=== PATIENT | female | born 1945 | race African-American/Black ===

== ENCOUNTER 2018-07-19 21:03 | Emergency (ER) | payer MEDICARE, MEDICAID ==
[~2018-07-19] VITALS: Ht 162.6 cm; Wt 77.0 kg
[2018-07-19 23:17] LABS: BASOPHILS % 1.1 % (0.0-2.0); EOSINOPHILS % 6.3 % (0.0-5.0); HEMATOCRIT. 38.9 % (36.0-48.0); HEMOGLOBIN. 12.9 g/dL (12.0-16.0); LYMPHOCYTES % 41.6 % (20.0-50.0); MEAN CORPUSCULAR HEMOGLOBIN 33.2 pg (28.0-32.0); MEAN CORPUSCULAR VOLUME 100.3 fL (81.0-99.0); MEAN PLATELET VOLUME 7.7 fl (7.4-10.4); MONOCYTES % 14.3 % (2.0-8.0); NEUTROPHILS % 36.7 % (40.0-76.0); PLATELET 161 x1000/uL (130-400); RED BLOOD CELL COUNT 3.87 mill/uL (4.2-5.4); RED CELL DISTRIBUTION WIDTH 15.8 % (11.6-14.6)
[2018-07-19 23:23] LABS: CHLORIDE 96 mEq/L (98-107)
[2018-07-19 23:24] LABS: INR 1.1; PROTHROMBIN TIME 10.7 sec (9.1-11.1)
[2018-07-19] MEDS ORDERED: ONDANSETRON HCL 4MG/2ML INJ IV STA (23:37)
[2018-07-19] MEDS ORDERED: MORPHINE SULFATE 4 MG/ML CPJ (NOT FOR IM USE) IV STA (23:37)
[2018-07-20] MEDS ORDERED: HYDROCODONE/ACETAMINOPHEN 10/325MG TABLET PO SCH (02:45)
[2018-07-20] MEDS ORDERED: ACETAMINOPHEN 500MG TABLET PO ONE (02:45)
[2018-07-20 04:30] VITALS: BP 110/78
== END 2018-07-20 04:30 | disposition home or self-care (01) ==
LOC: ER 21:03
DX: S39.91XA Unspecified injury of abdomen, initial encounter (principal); M79.671 Pain in right foot; I12.0 Hypertensive chronic kidney disease with stage 5 chronic kidney disease or end stage renal disease; N18.6 End stage renal disease; E78.5 Hyperlipidemia, unspecified; Z99.2 Dependence on renal dialysis; F17.200 Nicotine dependence, unspecified, uncomplicated; W06.XXXA Fall from bed, initial encounter; Y93.9 Activity, unspecified; Y92.9 Unspecified place or not applicable; Z90.49 Acquired absence of other specified parts of digestive tract
CPT/HCPCS: 36415; 71045; 73630; 74176; 80053; 83690; 84484; 85025; 85610; 93005; 96374; 96375; 99284; J2270; J2405

== ENCOUNTER 2021-06-15 06:45 | Inpatient (IN) | payer MEDICARE, MEDICAID ==
[~2021-06-15] VITALS: Ht 172.7 cm; Wt 75.3 kg
[2021-06-15] MEDS ORDERED: MORPHINE SULFATE 4 MG/ML CPJ (NOT FOR IM USE) IV ONE (12:15)
[2021-06-15] MEDS ORDERED: ONDANSETRON HCL 4MG/2ML INJ IV ONE (12:15)
[2021-06-15] MEDS ORDERED: PANTOPRAZOLE SODIUM 40 MG/VIAL IV ONE (12:15)
[2021-06-15 13:06] LABS: BASOPHILS % 0.5 % (0.0-2.0); EOSINOPHILS % 0.6 % (0.0-5.0); HEMATOCRIT. 46.1 % (36.0-48.0); HEMOGLOBIN. 15.6 g/dL (12.0-16.0); LYMPHOCYTES % 15.3 % (20.0-50.0); MEAN CORPUSCULAR HEMOGLOBIN 33.5 pg (28.0-32.0); MEAN CORPUSCULAR VOLUME 99.1 fL (81.0-99.0); MEAN PLATELET VOLUME 8.4 fl (7.4-10.4); MONOCYTES % 11.2 % (2.0-8.0); NEUTROPHILS % 72.4 % (40.0-76.0); PLATELET 144 x1000/uL (130-400); RED BLOOD CELL COUNT 4.65 mill/uL (4.2-5.4); RED CELL DISTRIBUTION WIDTH 14.4 % (11.6-14.6)
[2021-06-15 13:12] LABS: CHLORIDE 94 mEq/L (98-107)
[2021-06-15] MEDS ORDERED: IOHEXOL-350 100 ML BOTTLE ONE (14:35)
[2021-06-15] MEDS ORDERED: HYDROCODONE/ACETAMINOPHEN 10/325MG TABLET PO ONE (17:15)
[2021-06-15] MEDS ORDERED: ACETAMINOPHEN 325MG TABLET PO PRN ×2 (18:15)
[2021-06-15] MEDS ORDERED: DOCUSATE SODIUM 100MG CAPSULE PO PRN (18:15)
[2021-06-15] MEDS ORDERED: SODIUM POLYSTYRENE SULFONATE 15 G/60 ML BOT PO NR (18:15)
[2021-06-15] MEDS ORDERED: ALBUTEROL 6.7GM HFA INHALER ORI PRN (18:15)
[2021-06-15] MEDS ORDERED: CLONIDINE 0.1MG TABLET PO PRN (18:15)
[2021-06-15] MEDS ORDERED: NITROGLYCERIN 0.4MG TABLET SL SL PRN (18:15)
[2021-06-15] MEDS ORDERED: GUAIFENESIN 200MG/10ML SUGAR FREE UDC PO PRN (18:15)
[2021-06-15] MEDS ORDERED: MAGNESIUM/ALUMINUM HYDROXIDE/SIMETHICONE 30ML UDC PO PRN (18:15)
[2021-06-15] MEDS ORDERED: IPRATROPIUM/ALBUTEROL 0.5-3(2.5)MG/3ML NEB NEB PRN (18:15)
[2021-06-15] MEDS ORDERED: ZOLPIDEM TARTRATE 5MG TABLET PO PRN (18:15)
[2021-06-15 19:47] LABS: ETHANOL BLOOD < 10 mg/dL
[2021-06-15 20:26] LABS: VITAMIN B12 SERUM 1244 pg/mL (211-911)
[2021-06-15] MEDS: METOPROLOL TARTRATE 25MG TABLET PO SCH (20:58)
[2021-06-15] MEDS: FAMOTIDINE 20MG TABLET PO SCH (21:05)
[2021-06-15] MEDS: ASCORBIC ACID 500 MG TABLET PO SCH (21:06)
[2021-06-15] MEDS: ENOXAPARIN 30MG/0.3ML SYR SUBCUT SCH (21:06)
[2021-06-15] MEDS ORDERED: MIDODRINE HCL 2.5MG TABLET PO SCH (22:00)
[2021-06-15] MEDS ORDERED: PIPERACILLIN/TAZ 3.375G PREMIX 50 ML IV SCH (22:15)
[2021-06-15] MEDS ORDERED: SODIUM CHLORIDE 0.9% 250 ML IV SCH (22:30)
[2021-06-15] MEDS: PIPERACILLIN/TAZOBACTAM 3.375 G in DEXTROSE 5% WATER 50 ML IV SCH (23:58)
[2021-06-16 00:40] LABS: CREATINE KINASE 48 IU/L (26-192)
[2021-06-16 00:41] LABS: CREATINE KINASE MB FRACTION < 1.0 ng/mL (0.5-3.6)
[2021-06-16] MEDS: TRAMADOL 50MG TABLET PO PRN (07:09)
[2021-06-16] MEDS ORDERED: NALOXONE HCL 0.4MG/ML VIAL IV PRN (07:30)
[2021-06-16 07:59] LABS: BASOPHILS % 0.9 % (0.0-2.0); EOSINOPHILS % 7.4 % (0.0-5.0); HEMATOCRIT. 40.4 % (36.0-48.0); HEMOGLOBIN. 13.6 g/dL (12.0-16.0); LYMPHOCYTES % 21.3 % (20.0-50.0); MEAN CORPUSCULAR HEMOGLOBIN 33.3 pg (28.0-32.0); MEAN CORPUSCULAR VOLUME 99.3 fL (81.0-99.0); NEUTROPHILS % 56.4 % (40.0-76.0); PLATELET 140 x1000/uL (130-400); RED BLOOD CELL COUNT 4.07 mill/uL (4.2-5.4); RED CELL DISTRIBUTION WIDTH 14.8 % (11.6-14.6)
[2021-06-16] MEDS: PIPERACILLIN/TAZOBACTAM 3.375 G in DEXTROSE 5% WATER 50 ML IV SCH ×2 (09:02→21:38)
[2021-06-16] MEDS: ZINC SULFATE 220 MG ( 50 ) CAPSULE PO SCH (09:02)
[2021-06-16] MEDS: MIDODRINE HCL 5MG TABLET PO SCH ×3 (09:02→17:18)
[2021-06-16] MEDS: ASCORBIC ACID 500 MG TABLET PO SCH ×2 (09:03→21:38)
[2021-06-16] MEDS: SEVELAMER CARBONATE 800 MG TABLET PO SCH ×3 (09:03→17:17)
[2021-06-16] MEDS: CHOLECALCIFEROL (D3) 1000 UNIT TABLET PO SCH (09:03)
[2021-06-16] MEDS: METOPROLOL TARTRATE 25MG TABLET PO SCH ×2 (09:04→21:00)
[2021-06-16 10:47] VITALS: BP 86/42
[2021-06-16] MEDS ORDERED: LIDO35.44 TP (11:22)
[2021-06-16] MEDS ORDERED: MV-M1TAB19 PO (11:23)
[2021-06-16] MEDS ORDERED: ASPI-1497 PO (11:24)
[2021-06-16] MEDS ORDERED: CHOL500010 (11:24)
[2021-06-16] MEDS ORDERED: DILT120C11 MT (11:25)
[2021-06-16] MEDS ORDERED: ATOR20TA65 MT (11:25)
[2021-06-16] MEDS ORDERED: HYDR-4009 PO (11:26)
[2021-06-16 12:00] VITALS: BP 86/42
[2021-06-16 13:01] LABS: HEPATITIS B SURFACE ANTIGEN NEGATIVE
[2021-06-16] MEDS: SODIUM CHLORIDE 0.9% 1,000 ML IV SCH (13:31)
[2021-06-16 16:00] VITALS: BP 112/66
[2021-06-16] MEDS ORDERED: DIPHENHYDRAMINE 50MG CAPSULE PO NR (16:00)
[2021-06-16 20:00] VITALS: BP 96/48
[2021-06-16] MEDS ORDERED: PNEUMOCOCCAL 23-VAL P-SAC VAC 0.5 ML IM ONE (20:00)
[2021-06-16 21:37] LABS: BASOPHILS % 1.1 % (0.0-2.0); EOSINOPHILS % 9.6 % (0.0-5.0); HEMATOCRIT. 34.3 % (36.0-48.0); HEMOGLOBIN. 11.7 g/dL (12.0-16.0); LYMPHOCYTES % 21.1 % (20.0-50.0); MEAN CORPUSCULAR HEMOGLOBIN 33.9 pg (28.0-32.0); MEAN CORPUSCULAR VOLUME 99.7 fL (81.0-99.0); MEAN PLATELET VOLUME 8.3 fl (7.4-10.4); NEUTROPHILS % 55.2 % (40.0-76.0); PLATELET 130 x1000/uL (130-400); RED BLOOD CELL COUNT 3.44 mill/uL (4.2-5.4); RED CELL DISTRIBUTION WIDTH 14.9 % (11.6-14.6)
[2021-06-16] MEDS: FAMOTIDINE 20MG TABLET PO SCH (21:38)
[2021-06-16] MEDS: ENOXAPARIN 30MG/0.3ML SYR SUBCUT SCH (21:39)
[2021-06-16 21:47] LABS: CHLORIDE 99 mEq/L (98-107)
[2021-06-16 21:57] LABS: CREATINE KINASE 47 IU/L (26-192)
[2021-06-16 22:00] LABS: CREATINE KINASE MB FRACTION < 1.0 ng/mL (0.5-3.6)
[2021-06-17] MEDS: SODIUM CHLORIDE 0.9% 1,000 ML IV SCH ×2 (00:53→10:40)
[2021-06-17 04:00] VITALS: BP 119/43
[2021-06-17] MEDS: SEVELAMER CARBONATE 800 MG TABLET PO SCH ×3 (06:10→18:54)
[2021-06-17 08:00] VITALS: BP 102/55
[2021-06-17 08:02] LABS: HEMATOCRIT. 35.4 % (36.0-48.0); HEMOGLOBIN. 11.7 g/dL (12.0-16.0); MEAN CORPUSCULAR HEMOGLOBIN 33.1 pg (28.0-32.0); MEAN CORPUSCULAR VOLUME 99.8 fL (81.0-99.0); MEAN PLATELET VOLUME 8.5 fl (7.4-10.4); PLATELET 120 x1000/uL (130-400); RED BLOOD CELL COUNT 3.55 mill/uL (4.2-5.4); RED CELL DISTRIBUTION WIDTH 14.9 % (11.6-14.6)
[2021-06-17 08:45] LABS: CHLORIDE 100 mEq/L (98-107)
[2021-06-17 08:55] LABS: PHOSPHORUS 4.5 mg/dL (2.5-4.9)
[2021-06-17] MEDS: METOPROLOL TARTRATE 25MG TABLET PO SCH ×2 (09:00→21:00)
[2021-06-17] MEDS: ZINC SULFATE 220 MG ( 50 ) CAPSULE PO SCH (10:38)
[2021-06-17] MEDS: CHOLECALCIFEROL (D3) 1000 UNIT TABLET PO SCH (10:38)
[2021-06-17] MEDS: MIDODRINE HCL 5MG TABLET PO SCH ×3 (10:38→18:54)
[2021-06-17] MEDS: PIPERACILLIN/TAZOBACTAM 3.375 G in DEXTROSE 5% WATER 50 ML IV SCH ×2 (10:39→21:35)
[2021-06-17 12:00] VITALS: BP 110/63
[2021-06-17] MEDS ORDERED: NALOXONE HCL 0.4MG/ML VIAL IV PRN (13:15)
[2021-06-17] MEDS: ASCORBIC ACID 500 MG TABLET PO SCH ×2 (13:52→21:34)
[2021-06-17] MEDS: TRAMADOL 50MG TABLET PO PRN ×2 (14:13→15:13)
[2021-06-17] MEDS ORDERED: VANCOMYCIN 1500MG in DEXTROSE 5% WATER 250ML IV NR (15:00)
[2021-06-17 17:34] LABS: PLATELET ESTIMATE DECREASED
[2021-06-17] MEDS: FAMOTIDINE 20MG TABLET PO SCH (21:34)
[2021-06-17] MEDS: ENOXAPARIN 30MG/0.3ML SYR SUBCUT SCH (21:35)
[2021-06-17 22:00] VITALS: BP 109/53
[2021-06-18 08:00] VITALS: BP 98/59
[2021-06-18] MEDS: METOPROLOL TARTRATE 25MG TABLET PO SCH ×2 (09:00→21:00)
[2021-06-18] MEDS: ASCORBIC ACID 500 MG TABLET PO SCH ×2 (09:38→22:40)
[2021-06-18] MEDS: ZINC SULFATE 220 MG ( 50 ) CAPSULE PO SCH (09:38)
[2021-06-18] MEDS: PIPERACILLIN/TAZOBACTAM 3.375 G in DEXTROSE 5% WATER 50 ML IV SCH ×2 (09:38→22:41)
[2021-06-18] MEDS: SEVELAMER CARBONATE 800 MG TABLET PO SCH ×3 (09:38→17:20)
[2021-06-18] MEDS: MIDODRINE HCL 5MG TABLET PO SCH ×3 (09:39→17:20)
[2021-06-18] MEDS: CHOLECALCIFEROL (D3) 1000 UNIT TABLET PO SCH (09:39)
[2021-06-18] MEDS: SODIUM CHLORIDE 0.9% 1,000 ML IV SCH ×2 (09:40→17:21)
[2021-06-18 12:00] VITALS: BP 108/60
[2021-06-18 16:00] VITALS: BP 108/65
[2021-06-18 20:00] VITALS: BP 99/60
[2021-06-18] MEDS: FAMOTIDINE 20MG TABLET PO SCH (22:40)
[2021-06-18] MEDS: ENOXAPARIN 30MG/0.3ML SYR SUBCUT SCH (22:40)
[2021-06-19] VITALS: BP 106/59
[2021-06-19 04:00] VITALS: BP 112/60
[2021-06-19 08:00] VITALS: BP 100/43
[2021-06-19] MEDS: ZINC SULFATE 220 MG ( 50 ) CAPSULE PO SCH (08:46)
[2021-06-19] MEDS: PIPERACILLIN/TAZOBACTAM 3.375 G in DEXTROSE 5% WATER 50 ML IV SCH ×2 (08:46→22:21)
[2021-06-19] MEDS: SEVELAMER CARBONATE 800 MG TABLET PO SCH ×3 (08:46→17:02)
[2021-06-19] MEDS: CHOLECALCIFEROL (D3) 1000 UNIT TABLET PO SCH (08:47)
[2021-06-19] MEDS: MIDODRINE HCL 5MG TABLET PO SCH ×3 (08:47→17:02)
[2021-06-19] MEDS: METOPROLOL TARTRATE 25MG TABLET PO SCH ×2 (08:47→22:22)
[2021-06-19] MEDS: TRAMADOL 50MG TABLET PO PRN (08:47)
[2021-06-19] MEDS: SODIUM CHLORIDE 0.9% 1,000 ML IV SCH ×2 (10:59→21:00)
[2021-06-19] MEDS: ASCORBIC ACID 500 MG TABLET PO SCH ×2 (10:59→22:21)
[2021-06-19 12:00] VITALS: BP 101/55
[2021-06-19 16:00] VITALS: BP 112/63
[2021-06-19 20:00] VITALS: BP 112/71
[2021-06-19] MEDS: FAMOTIDINE 20MG TABLET PO SCH (22:21)
[2021-06-19] MEDS: ENOXAPARIN 30MG/0.3ML SYR SUBCUT SCH (22:22)
[2021-06-20] VITALS: BP 108/64
[2021-06-20 04:00] VITALS: BP 101/61
[2021-06-20] MEDS: SODIUM CHLORIDE 0.9% 1,000 ML IV SCH ×2 (07:00→17:07)
[2021-06-20] MEDS: SEVELAMER CARBONATE 800 MG TABLET PO SCH ×3 (07:10→17:07)
[2021-06-20 08:00] VITALS: BP 106/65
[2021-06-20] MEDS: PIPERACILLIN/TAZOBACTAM 3.375 G in DEXTROSE 5% WATER 50 ML IV SCH ×2 (09:00→21:22)
[2021-06-20] MEDS: CHOLECALCIFEROL (D3) 1000 UNIT TABLET PO SCH (09:00)
[2021-06-20] MEDS: MIDODRINE HCL 5MG TABLET PO SCH ×3 (09:00→17:00)
[2021-06-20] MEDS: METOPROLOL TARTRATE 25MG TABLET PO SCH ×2 (09:00→21:00)
[2021-06-20] MEDS: ZINC SULFATE 220 MG ( 50 ) CAPSULE PO SCH (09:00)
[2021-06-20] MEDS: ASCORBIC ACID 500 MG TABLET PO SCH ×2 (09:00→21:22)
[2021-06-20 12:00] VITALS: BP 133/58
[2021-06-20] MEDS: ONDANSETRON HCL 4MG/2ML INJ IV PRN (12:24)
[2021-06-20] MEDS: TRAMADOL 50MG TABLET PO PRN ×2 (14:45→22:54)
[2021-06-20 16:00] VITALS: BP 122/64
[2021-06-20 20:00] VITALS: BP 112/56
[2021-06-20] MEDS: FAMOTIDINE 20MG TABLET PO SCH (21:22)
[2021-06-20] MEDS: ENOXAPARIN 30MG/0.3ML SYR SUBCUT SCH (21:36)
[2021-06-20 22:47] LABS: HEPATITIS B SURFACE ANTIGEN NEGATIVE
[2021-06-21] VITALS: BP 152/62
[2021-06-21] MEDS: SODIUM CHLORIDE 0.9% 1,000 ML IV SCH ×2 (03:00→12:51)
[2021-06-21 05:00] VITALS: BP 125/66
[2021-06-21] MEDS: TRAMADOL 50MG TABLET PO PRN ×2 (05:58→12:49)
[2021-06-21 08:00] VITALS: BP 132/69
[2021-06-21] MEDS: SEVELAMER CARBONATE 800 MG TABLET PO SCH ×3 (08:14→16:51)
[2021-06-21] MEDS: METOPROLOL TARTRATE 25MG TABLET PO SCH ×2 (09:00→21:00)
[2021-06-21] MEDS: MIDODRINE HCL 5MG TABLET PO SCH ×3 (09:00→16:48)
[2021-06-21] MEDS: CHOLECALCIFEROL (D3) 1000 UNIT TABLET PO SCH (09:49)
[2021-06-21] MEDS: ZINC SULFATE 220 MG ( 50 ) CAPSULE PO SCH (09:54)
[2021-06-21] MEDS: ASCORBIC ACID 500 MG TABLET PO SCH ×2 (09:54→21:05)
[2021-06-21 12:00] VITALS: BP 122/67
[2021-06-21 16:00] VITALS: BP 138/67
[2021-06-21 20:00] VITALS: BP 149/71
[2021-06-21] MEDS: FAMOTIDINE 20MG TABLET PO SCH (21:05)
[2021-06-21] MEDS: ENOXAPARIN 30MG/0.3ML SYR SUBCUT SCH (21:05)
[2021-06-22] VITALS: BP 142/70
[2021-06-22] MEDS: SODIUM CHLORIDE 0.9% 1,000 ML IV SCH ×3 (00:25→21:51)
[2021-06-22 04:00] VITALS: BP 127/54
[2021-06-22] MEDS: TRAMADOL 50MG TABLET PO PRN (05:11)
[2021-06-22 07:55] VITALS: BP 131/56
[2021-06-22] MEDS: SEVELAMER CARBONATE 800 MG TABLET PO SCH ×3 (08:21→17:37)
[2021-06-22] MEDS: METOPROLOL TARTRATE 25MG TABLET PO SCH ×2 (08:21→21:00)
[2021-06-22] MEDS: ASCORBIC ACID 500 MG TABLET PO SCH ×2 (08:21→22:46)
[2021-06-22] MEDS: MIDODRINE HCL 5MG TABLET PO SCH ×3 (08:21→17:37)
[2021-06-22] MEDS: CHOLECALCIFEROL (D3) 1000 UNIT TABLET PO SCH (08:21)
[2021-06-22] MEDS: ZINC SULFATE 220 MG ( 50 ) CAPSULE PO SCH (08:21)
[2021-06-22] MEDS: ONDANSETRON HCL 4MG/2ML INJ IV PRN ×2 (10:03→17:40)
[2021-06-22 11:46] VITALS: BP 119/66
[2021-06-22 15:57] VITALS: BP 118/55
[2021-06-22 20:00] VITALS: BP 132/57
[2021-06-22] MEDS: FAMOTIDINE 20MG TABLET PO SCH (21:51)
[2021-06-22] MEDS: ENOXAPARIN 30MG/0.3ML SYR SUBCUT SCH (21:52)
[2021-06-23] VITALS: BP 130/64
[2021-06-23] MEDS: ONDANSETRON HCL 4MG/2ML INJ IV PRN ×2 (01:23→13:25)
[2021-06-23 04:00] VITALS: BP 128/62
[2021-06-23] MEDS: SODIUM CHLORIDE 0.9% 1,000 ML IV SCH ×2 (04:40→15:02)
[2021-06-23] MEDS: SEVELAMER CARBONATE 800 MG TABLET PO SCH ×3 (06:33→17:17)
[2021-06-23 08:00] VITALS: BP 120/77
[2021-06-23] MEDS: METOPROLOL TARTRATE 25MG TABLET PO SCH (09:00)
[2021-06-23] MEDS: MIDODRINE HCL 5MG TABLET PO SCH ×3 (09:00→17:00)
[2021-06-23] MEDS: ZINC SULFATE 220 MG ( 50 ) CAPSULE PO SCH (10:21)
[2021-06-23] MEDS: CHOLECALCIFEROL (D3) 1000 UNIT TABLET PO SCH (10:21)
[2021-06-23] MEDS: ASCORBIC ACID 500 MG TABLET PO SCH (11:35)
[2021-06-23 12:00] VITALS: BP 130/57
[2021-06-23] MEDS ORDERED: DIPHENHYDRAMINE 50MG/ML VIAL IV NR (15:00)
[2021-06-23 16:00] VITALS: BP 144/72
[2021-06-23 17:40] VITALS: BP 144/72
== END 2021-06-23 18:37 | disposition home or self-care (01) | DRG 177 ==
LOC: ER 06:45 → 7EST 17:05 → ENRESERV 06-16 08:41
PROVIDERS: ADMIT Internal Medicine; ATTEND Internal Medicine
PROC: 5A1D70Z Performance of Urinary Filtration, Intermittent, Less than 6 Hours Per Day (ICD-10-PCS; 2021-06-16)
PROC: 5A1D70Z Performance of Urinary Filtration, Intermittent, Less than 6 Hours Per Day (ICD-10-PCS; principal; 2021-06-17)
PROC: 5A1D70Z Performance of Urinary Filtration, Intermittent, Less than 6 Hours Per Day (ICD-10-PCS; 2021-06-20)
PROC: 5A1D70Z Performance of Urinary Filtration, Intermittent, Less than 6 Hours Per Day (ICD-10-PCS; 2021-06-23)
DX: U07.1 COVID-19 (principal); J96.00 Acute respiratory failure, unspecified whether with hypoxia or hypercapnia; N18.6 End stage renal disease; E43 Unspecified severe protein-calorie malnutrition; J12.82 Pneumonia due to coronavirus disease 2019; I50.33 Acute on chronic diastolic (congestive) heart failure; I13.2 Hypertensive heart and chronic kidney disease with heart failure and with stage 5 chronic kidney disease, or end stage renal disease; E87.1 Hypo-osmolality and hyponatremia; K92.2 Gastrointestinal hemorrhage, unspecified; N17.9 Acute kidney failure, unspecified; T82.868A Thrombosis due to vascular prosthetic devices, implants and grafts, initial encounter; D64.9 Anemia, unspecified; E78.5 Hyperlipidemia, unspecified; E87.5 Hyperkalemia; E88.09 Other disorders of plasma-protein metabolism, not elsewhere classified; E11.22 Type 2 diabetes mellitus with diabetic chronic kidney disease; Y83.2 Surgical operation with anastomosis, bypass or graft as the cause of abnormal reaction of the patient, or of later complication, without mention of misadventure at the time of the procedure; N27.1 Small kidney, bilateral; I95.9 Hypotension, unspecified; N28.1 Cyst of kidney, acquired; Z79.82 Long term (current) use of aspirin; Z79.899 Other long term (current) drug therapy; Z90.49 Acquired absence of other specified parts of digestive tract; Z99.2 Dependence on renal dialysis; Z79.4 Long term (current) use of insulin; Z68.25 Body mass index [BMI] 25.0-25.9, adult; Y92.89 Other specified places as the place of occurrence of the external cause
CPT/HCPCS: 36415; 71045; 74174; 80053; 80076; 80202; 80320; 82550; 82553; 82607; 83735; 83880; 84100; 84145; 84443; 84484; 85025; 86705; 86709; 86803; 87340; 87426; 90732; 93005; 93970; 99285; C9113; J1200; J1650; J2270; J2405; J2543; J3370; J7030; J7060; Q0163; Q9967; G0480